=== PATIENT | female | born 1980 | race Caucasian/White ===

== ENCOUNTER 2022-05-16 10:11 | Outpatient (CLI) | payer MEDICARE, MEDICAID, SELFPAY ==
--- NOTE | ~2022-05-16 | XR_ITS ---
XR cervical spine 4-5V DATE: 05/16/2022 10:57 INDICATION: Down syndrome TECHNIQUE: Flexion and extension lateral views, AP, open-mouth, lateral views COMPARISON: None FINDINGS: C1 and C2 are normally aligned and the odontoid process appears intact. No fracture or disl ocation or locked facet or prevertebral soft tissue swelling is detected. No cervical instability on flexion or extension is noted. There is multilevel degenerative disc disease, most prominent at C6-7. IMPRESSION: Multilevel degenerative disc disease, most prominent at C6-7 Reviewed, dictated and finalized at location A.
== END 2022-05-16 10:12 | disposition home or self-care (01) ==
PROVIDERS: PCP Physician Assistant; Visit Provider Physician Assistant
DX: Q90.9 Down syndrome, unspecified (principal); M50.323 Other cervical disc degeneration at C6-C7 level
CPT/HCPCS: 72050

== ENCOUNTER 2022-07-18 10:56 | Emergency (ER) | payer MEDICARE, MEDICAID, SELFPAY ==
[2022-07-18 11:15] VITALS: BP 131/85; PULSE 98; RESP 20; TEMP 36.5; O2SAT 99
--- NOTE | 2022-07-18 11:42 | ED.URI ---
HPI - URI/Sore Throat General Chief Complaint: Upper Respiratory Infection Stated Complaint: chest congestion Time Seen by Provider: 07/18/22 11:20 Source: patient Mode of arrival: ambulatory Limitations: no limitations History of Present Illness HPI Narrative: Hazel is a 41-year-old nonverbal down syndrome female patient presenting to the clinic today with complaints of chest congestion x1 week. Family members report no fever or chills. No known exposure to anyone with COVID, flu, or strep MD elicited complaint: sore throat and nasal congestion Related Data Home Medications Medication Instructions Recorded Confirmed carbamazepine 200 mg tablet 200 mg PO Q12H 02/09/20 07/18/22 ezetimibe 10 mg tablet 10 mg PO DAILY 02/09/20 07/18/22 sertraline 25 mg tablet 25 mg PO DAILY 02/09/20 07/18/22 Allergies Allergy/AdvReac Type Severity Reaction Status Date / Time No Known Allergies Allergy Verified 07/18/22 11:29 Review of Systems Review of Systems: Pertinent positives per HPI. Patient denies any fever, chills, rash, headache, visual changes, dizziness, shortness of breath, chest pain, palpitations, nausea, vomiting, diarrhea, constipation, abdominal pain, or any urinary issues. PMFSH Past Medical History Medical History Anxiety Down syndrome High serum cholesterol sulfate Nonverbal Surgical History Surgical History History of tonsillectomy Family History Family History Father Hypertension Grandparent Family history of coronary artery disease Diabetes mellitus Hypertension Mother Hypertension Social History Social History Smoking status: Never smoker Alcohol intake: never Substance use: never Comments At the time of my signature, I reviewed and agree with the nursing past medical, surgical, social, and family history. There is no relevant family history pertinent to the patient complaint. Exam Narrative: General: Well-developed, well nourished, in no apparent distress Head: Normocephalic, atraumatic Eyes: Pupils equally round and reactive to light bilaterally, EOM intact, sclera and conjunctive clear, no discharge, lids normal Ears: TMs intact and clear, ear canals clear, no drainage, grossly hearing normal. Nose: Nares patent, no discharge, no inflammation, no sinus tenderness. Mouth: Oral pharynx without lesions or masses, good dentition, MMM. Neck: Supple, trachea midline, no enlargement of anterior or posterior cervical nodes, no thyroid masses or goiter palpable. Cardio: Regular rate and rhythm, s1 and s2 normal, no murmur appreciated. Resp: Clear to auscultation bilaterally, no rhonchi, rales, wheezing or rubs Course Course Emergency Course: Portions of this record may have been created with voice recognition software. Level of Care: Express Care Visit Vital Signs Vital signs: Vital Signs Temperature 36.5 C 07/18/22 11:15 Pulse Rate 98 07/18/22 11:15 Respiratory Rate 20 07/18/22 11:15 Blood Pressure 131/85 07/18/22 11:15 Pulse Oximetry 99 07/18/22 11:15 Temperature 36.5 C 07/18/22 11:15 Pulse Rate 98 07/18/22 11:15 Respiratory Rate 20 07/18/22 11:15 Blood Pressure 131/85 07/18/22 11:15 Pulse Oximetry 99 07/18/22 11:15 Vital signs reviewed MDM - URI/Sore Throat MDM Narrative Medical decision making narrative: At the time of visit patient is resting comfortably on the exam table. Lung sounds are clear however she does have a wet cough and runny nose. I suspect patient has URI. Supportive measures were discussed with the patient and the father and they voiced understanding. Prescription for albuterol inhaler was sent as well as prednisone. Differential Diagnosis Differenti
== END 2022-07-18 11:48 | disposition home or self-care (01) ==
PROVIDERS: Emergency Provider Nurse Practitioner Family; PCP Physician Assistant
DX: J06.9 Acute upper respiratory infection, unspecified (principal); R05.9 Cough, unspecified; Q90.9 Down syndrome, unspecified; F41.9 Anxiety disorder, unspecified
CPT/HCPCS: 99213; G0463

== ENCOUNTER 2023-05-02 02:50 | Day surgery (SDC) | payer MEDICARE, MEDICAID, SELFPAY ==
[2023-04-19 16:22] VITALS: BMI 27.6
--- NOTE | 2023-04-19 16:27 | PC.NURSE ---
Report to the Outpatient Waiting Room, entrance under the green pavilion located off [facility], at time _0600_ on date _[id number]_. Planned Procedure Time: 30_. Time changes happen often and if your time is changed the preop area will call you the afternoon before. - You and your visitor will be asked to self-screen and do not enter if you have any COVID symptoms. - A mask is optional within the hospital at this time. Patients may have clear liquids (water, carbonated beverages, clear teas, apple juice) until 3 hours prior to surgery with a maximum of 20 ounces. - No food from midnight until time of surgery Take the following medications with a SIP of water the morning of surgery: __Diazepam, Carbamazepine, Ezetimibe and Sertraline DO NOT STOP ANY OF YOUR OTHER PRESCRIPTION MEDICATIONS PRIOR TO SURGERY ?EXCEPT THE FOLLOWING Medications to discontinue per physician None Date to take last dose Please no make-up, nail khmer, hairspray, perfume, deodorant, or body powder the day of surgery. No jewelry (including any body piercings) or valuables the day of surgery, leave them at home. Please take a shower or bath the night before, or the morning of, surgery with an antibacterial soap. Wear comfortable, loose fitting clothing. - Jewelry must be removed prior to entering the operating room. Rings and piercings that are not removed may be cut off. - The hospital will not accept responsibility for valuables. - Please leave all valuables, including medications, at home the day of surgery. If you are going home after surgery, a licensed armored truck driver must drive you home. - NO public transportation without another adult if you receive anesthesia. - We recommend that an adult stay with you for 24 hours following discharge. - We also recommend that you do not drive, make important decision, drink alcoholic beverages, or take any drugs that were not prescribed by your health care provider for at least 24 hours after your discharge time. Follow any additional instructions given to you from your surgeon. If you or anyone in your household have experienced Covid symptoms in the past week, please notify your surgeon or the nurse liaison at the phone number below for possible testing. Telephone instructions given to __Parents___and asked if any additional questions and then verbalized understanding. Patient advised to call surgeon office or pre surgery nurse liaison [phone] if any additional questions.
[2023-05-02] MEDS: ACETAMINOPHEN 500 MG TABLET 1000 MG PO (07:00)
--- NOTE | 2023-05-02 07:07 | PM.IMHP ---
H&P: HPI History of Present Illness Date/Time: 05/02/23 07:07 Chief Complaint: Exam under anesthesia Narrative: 42 y/o G0 with Downs syndrome admitted for exam under anesthesia and pap smear. She is unable to tolerate exam in office. History is from her mother. Last exam under anesthesia ten years ago. LPS ten years ago. Review of Systems Review of Systems: All systems reviewed & are unremarkable except as noted in HPI and below Cardiovascular: Cardiovascular: Reports no additional cardiovascular complaints Respiratory: Respiratory: Reports no additional respiratory complaints Gastrointestinal: Gastrointestinal: Reports abdominal pain Integumentary/Breasts: Skin/Breast: Reports system reviewed and no additional complaints, except as docu Neurologic: Reports system reviewed and no additional complaints, except as documented PMF Past Medical History Medical History Anxiety Down syndrome High serum cholesterol sulfate Nonverbal Surgical History Surgical History History of tonsillectomy Family History Family History Father Hypertension Grandparent Family history of coronary artery disease Diabetes mellitus Hypertension Mother Hypertension Social History Social History Smoking status: Never smoker Alcohol intake: current Substance use: never Lack of Transportation: No Lack of Food: Never True Current Housing: I Have Housing Concerned About Future Housing: No Difficulty Paying Gas/Electric Bills: No Difficulty Paying for Meds: No Currently Unemployed: No Education: Decline to Answer Difficulty w/ Childcare or Family Care: No Living arrangements: with family Occupation/Education: other Gender identity (if verbalized by the patient): Female Spiritual care concerns: No Meds Home Medications and Allergies Home Medications Medication Instructions Recorded Confirmed Type carbamazepine 200 mg tablet 200 mg PO Q12H 02/09/20 04/25/23 History ezetimibe 10 mg tablet 10 mg PO DAILY 02/09/20 04/25/23 History sertraline 25 mg tablet 25 mg PO DAILY 02/09/20 04/25/23 History Allergies Allergy/AdvReac Type Severity Reaction Status Date / Time No Known Allergies Allergy Verified 04/19/23 16:20 Exam HENMT: Head: normal to inspection Eyes: General: appearance normal, both eyes and all related structures Resp: Effort & Inspection: normal respiratory effort Auscultation: clear to auscultation bilaterally Cardio: Rate: regular rate Rhythm: regular rhythm GI: Inspection: normal to inspection GI Palp: No Rebound tenderness present Neuro: General: oriented to person and oriented to place Cognition (Neuro): normal cognition Extrem: General: normal to inspection Psych: Appearance: grossly normal and well kempt Assessment and Plan Assessment and plan (1) Examination: Code(s): Z00.00 - Encounter for general adult medical examination without abnormal findings Status: Acute Assessment and Plan: Plan for exam with mask anesthesia. Will also obtain preventative labs.
--- NOTE | 2023-05-02 07:10 | WPDHPUPDATE1 ---
History and Physical Update Update Date/Time: 05/02/23 07:10 History and Physical has been reviewed, including an updated exam of the patient. There are NO changes in the patient's condition. Risks, benefits, and alternatives have been discussed and questions answered. Patient agrees to proceed with procedure.
--- NOTE | 2023-05-02 07:25 | WPDHPUPDATE1 ---
History and Physical Update Update Date/Time: 05/02/23 07:25 History and Physical has been reviewed, including an updated exam of the patient. There are NO changes in the patient's condition. Risks, benefits, and alternatives have been discussed and questions answered. Patient agrees to proceed with procedure.
[2023-05-02 07:47] VITALS: BP 99/67; PULSE 75; RESP 14; TEMP 36.6; O2SAT 100
[2023-05-02 07:57] LABS: Basophils Absolute Auto 0.1 K/mm3 (0.0-0.1); Basophils Percent Auto 1.2 % (0.2-1.2); Eosinophils Absolute Auto 0.1 K/mm3 (0-0.3); Hematocrit 45.5 % (37.0-47.0); Hemoglobin 15.5 g/dL (12.0-15.0); Immature Granulocyte Absolute 0.02 K/mm3 (0.00-0.031); Immature Granulocyte Percent A 0.3 % (0-0.5); Lymphocytes Absolute Auto 2.28 K/mm3 (0.9-3.2); Lymphocytes Percent Auto 38.3 % (18.3-44.2); Mean Corpuscular HGB Conc 34.1 g/dl (32-36); Mean Corpuscular Hemoglobin 33.5 pg (26-34); Mean Corpuscular Volume 98.5 fl (80-100); Mean Platelet Volume 8.6 fl (7.4-10.4); Monocytes Absolute Auto 0.5 K/mm3 (0.1-0.6); Monocytes Percent Auto 8.2 % (2.6-8.5); Platelet Count Result 254 k/mm3 (150-375); Red Blood Count 4.62 M/mm3 (4.2-5.4); Red Cell Distribution Width 14.6 % (11.5-14.5)
[2023-05-02 08:02] VITALS: BP 117/72; PULSE 86; RESP 20; O2SAT 100
[2023-05-02 08:04] VITALS: PULSE 53; RESP 16; O2SAT 100
[2023-05-02 08:06] LABS: Alanine Aminotransferase 22 U/L (6-35); Albumin Level 3.8 g/dL (3.5-5.1); Alkaline Phosphatase 86 U/L (38-126); Anion Gap 6 mmol/L (8-16); Aspartate Amino Transferase 26 U/L (14-36); Bilirubin,Total 0.4 mg/dL (0.2-1.3); Blood Urea Nitrogen 16 mg/dL (7-17); Calcium 8.4 mg/dL (8.4-10.2); Carbon Dioxide 24 mmol/L (22-30); Chloride 107 mmol/L (98-107); Estimated Glomerular Filt Rate > 60; Glucose 106 mg/dL (65-110); Sodium 137 mmol/L (137-145)
--- NOTE | 2023-05-02 08:34 | P.OP_ITS ---
Procedure Note - Detailed Date of Procedure 05/02/23 Pre-op Diagnosis Down Syndrome, Non verbal, pap smear Post-op Diagnosis Same Procedure Performed Refueling Ramp Supervisor exam under anesthesia, pap smear, clinical breast exam Surgeon Jose Angel Carroll MD Anesthesia MAC Indications 42 y/o female perimenopausal unable to obtain breast/pelvic exam in office. Findings atrophic vagina, cervix stenotic and sclerosed with vagina, uterus small, no adnexal masses palpated, normal breast exam bilaterally Description of Procedure After informed consent obtained from parents, she walked to OR, was placed on stretcher, adequate anesthesia was obtained, clinical breast exam performed,legs were placed in frog leg position, speculum inserted, pap smear obtained, bimanual exam normal. Ordered labs obtained by OR staff. Patient tolerated procedure well. Estimated Blood Loss 0 Drains No Packing No Pathology Other (pap smear obtained sent to outside pathologist) Complications No immediate complications Condition Stable Disposition PACU [facility] Billing Surgery - Charge Forward: Surgery Billing
--- NOTE | 2023-05-02 08:55 | WPDANESEPPF ---
Anes - Initial Pre Proc Eval Procedure: Operation Date: 05/02/23 07:30 Proposed Procedures p Pelvic Exam Under Anesthesia, Pap Smear, Bilateral Breast Exam - Jose Angel Carroll MD Date/Time: 05/02/23 08:55 Surgeon: Jose Angel Craroll MD Pre Op Diagnosis: Down Syndrome, Non verbal Patient Data Age: 42 Gender: F Height: 1.42 m Weight: 55.5 kg Last Vital Signs Temp 36.6 C 05/02/23 07:47 Pulse 53 L 05/02/23 08:04 Resp 16 05/02/23 08:04 BP 117/72 05/02/23 08:02 Pulse Ox 100 05/02/23 08:04 O2 Del Method Room Air 05/02/23 08:04 O2 Flow Rate 10 05/02/23 07:47 Allergies Allergy/AdvReac Type Severity Reaction Status Date / Time No Known Allergies Allergy Verified 05/02/23 08:38 Home Medications Medication Instructions Recorded Confirmed Type carbamazepine 200 mg tablet 200 mg PO Q12H 02/09/20 05/02/23 History ezetimibe 10 mg tablet 10 mg PO DAILY 02/09/20 05/02/23 History sertraline 25 mg tablet 25 mg PO DAILY 02/09/20 05/02/23 History Laboratory Tests 05/02/23 07:18 WBC 6.0 K/mm3 (4.5-10.0) RBC 4.62 M/mm3 (4.2-5.4) Hgb 15.5 H g/dL (12.0-15.0) Hct 45.5 % (37.0-47.0) MCV 98.5 fl (80-100) MCH 33.5 pg (26-34) MCHC 34.1 g/dl (32-36) RDW 14.6 H % (11.5-14.5) Plt Count 254 k/mm3 (150-375) MPV 8.6 fl (7.4-10.4) Immature Gran % (Auto) 0.3 % (0-0.5) Neut % (Auto) 50.0 % (45.5-73.1) Lymph % (Auto) 38.3 % (18.3-44.2) [place] % (Auto) 8.2 % (2.6-8.5) Eos % (Auto) 2.0 % (0-4.4) Baso % (Auto) 1.2 % (0.2-1.2) Lymph # (Auto) 2.28 K/mm3 (0.9-3.2) [place] # (Auto) 0.5 K/mm3 (0.1-0.6) Eos # (Auto) 0.1 K/mm3 (0-0.3) Baso # (Auto) 0.1 K/mm3 (0.0-0.1) Abs Immat Gran (auto) 0.02 K/mm3 (0.00-0.031) Absolute Neuts (auto) 3.0 K/mm3 (1.3-6.7) Absolute Nucleated RBC 0.0 K/mm3 (0.0-0.012) Nucleated RBC % 0.0 % (0.0-0.2) Sodium 137 mmol/L (137-145) Potassium 4.0 mmol/L (3.4-5.0) Chloride 107 mmol/L (98-107) Carbon Dioxide 24 mmol/L (22-30) Anion Gap 6 L mmol/L (8-16) BUN 16 mg/dL (7-17) Creatinine 0.70 mg/dL (0.7-1.0) Estim Creat Clear Calc Not Reportable Estimated GFR > 60 (59 - ) Glucose 106 mg/dL (65-110) Calcium 8.4 mg/dL (8.4-10.2) Total Bilirubin 0.4 mg/dL (0.2-1.3) Direct Bilirubin 0.0 mg/dL (0-0.3) AST 26 U/L (14-36) ALT 22 U/L (6-35) Alkaline Phosphatase 86 U/L (38-126) Total Protein 7.0 g/dL (6.3-8.2) Albumin 3.8 g/dL (3.5-5.1) FSH Pending Prolactin Pending Patient hx anesthesia problems: none Family hx anesthesia problems: none Results Review: All pre-operative results and documents have been reviewed as part of the pre-operative evaluation. [facility] Past Medical History Medical History Anxiety Down syndrome High serum cholesterol sulfate Nonverbal Surgical History Surgical History History of tonsillectomy Family History Family History Father Hypertension Grandparent Family history of coronary artery disease Diabetes mellitus Hypertension Mother Hypertension Social History Social History Smoking status: Never smoker Alcohol intake: current Substance use: never Lack of Transportation: No Lack of Food: Never True Current Housing: I Have Housing Concerned About Future Housing: No Difficulty Paying Gas/Electric Bills: No Difficulty Paying for Meds: No Currently Unemployed: No Education: Decline to Answer Difficulty w/ Childcare or Family Care: No Living arrangements: with family Occupation/Education: other Gender identity (if verbalized by the patient): Fem
[2023-05-06 05:15] LABS: Prolactin 48.2 ng/mL (***)
[2023-05-09 07:05] LABS: FSH 36.4 mIU/mL (***)
== END 2023-05-02 08:23 | disposition home or self-care (01) ==
PROVIDERS: PCP Physician Assistant; Visit Provider Obstetrics & Gynecology
PROC: 0U5B8ZZ Destruction of Endometrium, Via Natural or Artificial Opening Endoscopic (ICD-10-PCS; CPT 58563; principal; 2023-05-02 07:30)
DX: Z01.419 Encounter for gynecological examination (general) (routine) without abnormal findings (principal); Q90.9 Down syndrome, unspecified
CPT/HCPCS: Q0091; G0101; 36415; 80048; 80076; 83001; 84146; 85025; A9270; J3010

== ENCOUNTER 2023-12-19 08:11 | Outpatient (NON) | payer MEDICARE, MEDICAID, SELFPAY ==
[2023-12-19 08:56] LABS: Basophils Absolute Auto 0.1 K/mm3 (0.0-0.1); Eosinophils Absolute Auto 0.1 K/mm3 (0-0.3); Eosinophils Percent Auto 1.1 % (0-4.4); Immature Granulocyte Absolute 0.02 K/mm3 (0.00-0.031); Immature Granulocyte Percent A 0.3 % (0-0.5); Lymphocytes Absolute Auto 2.34 K/mm3 (0.9-3.2); Lymphocytes Percent Auto 37.8 % (18.3-44.2); Mean Corpuscular HGB Conc 33.3 g/dl (32-36); Mean Corpuscular Hemoglobin 32.7 pg (26-34); Mean Platelet Volume 8.7 fl (7.4-10.4); Monocytes Absolute Auto 0.5 K/mm3 (0.1-0.6); Monocytes Percent Auto 8.1 % (2.6-8.5); Neutrophils Absolute Auto 3.2 K/mm3 (1.3-6.7); Neutrophils Percent Auto 51.7 % (45.5-73.1); Platelet Count Result 273 k/mm3 (150-375); Red Cell Distribution Width 14.8 % (11.5-14.5); White Blood Count 6.2 K/mm3 (4.5-10.0)
[2023-12-19 08:59] LABS: Alanine Aminotransferase 20 U/L (6-35); Albumin Level 4.2 g/dL (3.5-5.1); Alkaline Phosphatase 98 U/L (38-126); Anion Gap 6 mmol/L (4-12); Aspartate Amino Transferase 25 U/L (14-36); Bilirubin,Total 0.5 mg/dL (0.2-1.3); Blood Urea Nitrogen 17 mg/dL (7-17); Calcium 8.9 mg/dL (8.4-10.2); Carbon Dioxide 27 mmol/L (22-30); Chloride 109 mmol/L (98-107); Cholesterol 279 mg/dL (0-200); Estimated Glomerular Filt Rate > 60; Glucose 101 mg/dL (65-110); HDL Direct 78 mg/dL; Potassium 3.8 mmol/L (3.4-5.0); Sodium 142 mmol/L (137-145); Triglycerides 89 mg/dL (<150)
[2023-12-19 09:09] LABS: LDL Cholesterol Direct 149 mg/dL
[2023-12-19 09:21] LABS: Hemoglobin A1C 5.2 % (<5.7)
[2023-12-19 09:37] LABS: Free T4 Free Thyroxine 1.01 ng/mL (0.78-2.19)
[2023-12-21 02:08] LABS: Progesterone <0.5 ng/mL
[2023-12-21 03:23] LABS: FSH 81.3 mIU/mL; LH 50.6 mIU/mL; Prolactin 11.2 ng/mL
[2023-12-26 00:33] LABS: Estradiol, Ultrasensitive 25 pg/mL
== END 2023-12-19 08:12 | disposition home or self-care (01) ==
PROVIDERS: PCP Physician Assistant; Visit Provider Physician Assistant
DX: E78.5 Hyperlipidemia, unspecified (principal); N92.6 Irregular menstruation, unspecified; R73.09 Other abnormal glucose; Z79.899 Other long term (current) drug therapy
CPT/HCPCS: 36415; 80048; 80061; 80076; 82670; 83001; 83002; 83036; 84144; 84146; 84439; 84443; 85025

== ENCOUNTER 2025-04-01 09:09 | Outpatient (CLI) | payer MEDICARE, MEDICAID, SELFPAY ==
--- OUTSIDE RECORDS SUMMARY | 2025-04-01 09:50 | XMS_ITS | Patient Health Record ---
Author Organization [facility] Address [address] [place], [place] [id number] Care Team Providers Care Service Desk Agent Name Role Phone ISADORA Heart Unavailable [phone] Constantin Westfall Unavailable Unavailable Reason For Referral No Information Medications Medication SIG (Take, Route, Frequency, Duration) Notes Start Date End Date Status sertraline 50 MG Oral Tablet ORAL sertraline 50 MG Oral TabletOriginal Medicationsertraline 50 MG Oral Tablet *Reorder from [employer] for eRx and Interaction Alerts* 3 Active carbamazepine 20 MG/ML Oral Suspension ORAL carbamazepine 20 MG/ML Oral SuspensionOriginal Medicationcarbamazepine 20 MG/ML Oral Suspension *Reorder from [employer] for eRx and Interaction Alerts* 3 Active Plan Of Treatment No Information Insurance Providers Payer Name Payer Address Payer Phone Subscriber Number Group Number Insured Name Patient Relationship to Insured Coverage Start Date Coverage End Date Medicare Part B [facility] [address] [facility] [place] [phone] [id number] AUDRA CORREIA Self - patient is the insured
--- OUTSIDE RECORDS SUMMARY | 2025-04-01 09:50 | XMS_ITS | Encounter Summary ---
Author Organization [facility] Care Team Providers Care Title Insurance Agent Name Role Phone Gini Zamora Primary Care Pr ovider Encounter Details Date Type Department Care Team (Latest Contact Info) Description 04/30/2017 Orders Only [facility] CLINCONV ProviderNathaly MD [address] [place] [id number] Social History Tobacco Use Types Packs/Day Years Used Date Smoking Tobacco: Never Comments Unknown Sex and Gender Information Value Date Recorded Sex Assigned at Not on file Legal Sex Female 10:34 AM [employer] Gender Identity Not on file Sexual Orientation Not on file documented as of this encounter Plan of Treatment Not on file documented as of this encounter Procedures Procedure Name Priority Date/Time Associated Diagnosis Comments SCAN - LABS 04/30/2017 12:00 AM CDT SCAN - LABS 04/30/2017 12:00 AM CDT documented in this encounter Results * SCAN - LABS (04/30/2017 12:00 AM CDT) Narrative 04/30/2017 12:00 AM CDT Ordered by an unspecified provider. Historical Provider Final Res ult * SCAN - LABS (04/30/2017 12:00 AM CDT) Narrative 04/30/2017 12:00 AM CDT Ordered by an unspecified provider. us Historical Provider MD Final Res ult documented in this encounter Visit Diagnoses Not on filedocumented in this encounter Care Teams Title Insurance Agent Relationship Specialty Start Date End Date Gini Zamora PA PCP - General Physician Drywall Application Supervisor 02/14/21 documented as of this encounter
--- OUTSIDE RECORDS SUMMARY | 2025-04-01 09:50 | XMS_ITS | Patient Health Record ---
Author Organization [facility] As PostedIn [facility] Address [address] [place] [address] Care Team Providers Care Chicken Cleaner Name Role Phone Gini Bergeron Primary Care Provider Isis Brewer Unavailable [phone] Earnestine Blanton Unavailable [phone] Allergies No Known Allergies Reason For Referral No Information Medications Medication SIG (Take, Route, Frequency, Duration) Notes Start Date End Date Status Ezetimibe 10 MG Tablet Oral 09/21/2023 Active Clindamycin Phosphate 1% Lotion External 09/21/2023 Not-Taking carBAMazepine 200 MG Tablet 0.5 tablet Oral daily; Duration: 90 days Active Social History Tobacco Use: Social History Observation Description Date Details (start date - stop date) Never Smoker NA - NA Sex Assigned At : Social History Observation Description Sex Assigned At Female Social History Household: Social Info Question Answer Notes Household Marital status: single Number of adults in household: 3 Drug/Alcohol: Social Info Question Answer Notes Drugs Have you used drugs other than those for medical reasons in the past 12 months? No Tobacco Use: Social Info Question Answer Notes Tobacco Control (Standard) Tobacco use: Nonsmoker Additional Details Category Social Info Options Details Miscellaneous: Occupation: disability Migrated Social History Migrated Social History Alcohol Intake: None 05/30/2021,Tobacco Years: Never smoker 05/30/2021 Drug/Alcohol: Do you drink alcohol? 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) Down's syndrome (Q90.9) Active confirmed Vital Signs Heart Rate 65 /min 10/08/2024 Height-cm 137.16 cm 10/08/2024 Blood pressure diastolic 80 mm Hg 10/08/2024 Weight-kg 58.97 kg 10/08/2024 Height 54.00 in 10/08/2024 Blood pressure systolic 130 mm Hg 10/08/2024 Weight 130 lbs 10/08/2024 BMI 31.34 kg/m2 10/08/2024 Encounters Encounter Location Date Provider Diagnosis [facility] [employer] [facility] [address] [place] [address] 04/11/2024 Earnestine Franny Generalized anxiety disorder F41.1 ; Intermittent explosive disorder F63.81 and Down's syndrome Q90.9 [facility] [employer] [facility] [address] [place] [address] 10/08/2024 Isis Lu Generalized anxiety disorder F41.1 ; Intermittent explosive disorder F63.81 ; Down's syndrome Q90.9 ; Encounter for screening for cardiovascular disorders Z13.6 and Encounter for screening for depression Z13.31 Assessments Encounter Date Diagnosis (ICD Code) Assessment Notes Treatment Notes Treatment Clinical Notes Section Notes 04/11/2024 Generalized anxiety disorder (ICD-10 - F41.1) stop sertraline 12.5mg daily and monitor for worsening symptoms they did not stop sertraline, but are still interested in minimizing meds. stop SSRI-very low dose, can restart if not tolerated. education on meds and treatment course. They will be going to [facility] for several months f/u in 6 months, earlier if concerns 04/11/2024 Intermittent explosive disorder (ICD-10 - F63.81) cont carbamazepine 200mg tab, take 1/2 tablet daily 10/08/2024 Generalized anxiety disorder (ICD-10 - F41.1) Mood disorder, stable Assessment: Patient was previously on sertraline, which was discontinued due to lack of efficacy at minimal dosage. Currently, the patient reports doing well with no behavioral concerns. She maintains an active lifestyle, including frequent travel. Sleep patterns are normal with no daytime drowsiness reported. Plan: - Continue carbamazepine 200 mg, 1/2 tablets once daily - Follow-up appointment in 6 months - Patient instructed to return sooner if any issues arise 10/08/2024 Intermittent explosive disorder (ICD-10 - F63.81) cont carbamazepine 200mg tab, take 1/2 tablet daily Mood disorder, stable Assessment: Patient was previously on sertraline, which was discontinued due to lack of efficacy at minimal dosage. Currently, the patient reports doing well with no behavioral concerns. She maintains an active lifestyle, including frequent travel. Sleep patterns are normal with no daytime drowsiness reported. Plan: - Continue carbamazepine 200 mg, 1/2 tablets once daily - Follow-up appointment in 6 months - Patient instructed to return sooner if any issues arise 04/11/2024 Down's syndrome (ICD-10 - Q90.9) supportive care 10/08/2024 Down's syndrome (ICD-10 - Q90.9) supportive care Mood disorder, stable Assessment: Patient was previously on sertraline, which was discontinued due to lack of efficacy at minimal dosage. Currently, the patient reports doing well with no behavioral concerns. She maintains an active lifestyle, including frequent travel. Sleep patterns are normal with no daytime drowsiness reported. Plan: - Continue carbamazepine 200 mg, 1/2 tablets once daily - Follow-up appointment in 6 months - Patient instructed to return sooner if any issues arise 10/08/2024 Encounter for screening for cardiovascular disorders (ICD-10 - Z13.6) Mood disorder, stable Assessment: Patient was previously on sertraline, which was discontinued due to lack of efficacy at minimal dosage. Currently, the patient reports doing well with no behavioral concerns. She maintains an active lifestyle, including frequent travel. Sleep patterns are normal with no daytime drowsiness reported. Plan: - Continue carbamazepine 200 mg, 1/2 tablets once daily - Follow-up appointment in 6 months - Patient instructed to return sooner if any issues arise 10/08/2024 Encounter for screening for depression (ICD-10 - Z13.31) Mood disorder, stable Assessment: Patient was previously on sertraline, which was discontinued due to lack of efficacy at minimal dosage. Currently, the patient reports doing well with no behavioral concerns. She maintains an active lifestyle, including frequent travel. Sleep patterns are normal with no daytime drowsiness reported. Plan: - Continue carbamazepine 200 mg, 1/2 tablets once daily - Follow-up appointment in 6 months - Patient instructed to return sooner if any issues arise Plan Of Treatment Next Appt Details Provider Name:Isis Davis anamaria, 04/08/2025 08:30:00 AM, [address], [address], [place], [address], Insurance Providers Payer Name Payer Address Payer Phone Subscriber Number Group Number Insured Name Patient Relationship to Insured Coverage Start Date Coverage End Date Medicare-I l Medicare [address] [place] [address] [id number] AUDRA CORREIA Self - patient is the insured Medicaid-[place] l Medicaid [address] [address] [place] [address] [id number] AUDRA CORREIA Self - patient is the insured Medical (General) History Medical History History ICD Code Problems: Complete trisomy 21 syndrome Generalized anxiety disorder Hypercholesterolemia Intermittent explosive outburst , Surgical History Surgery Date(Month/Year) Tonsillectomy ([id number])
--- OUTSIDE RECORDS SUMMARY | 2025-04-01 09:50 | XMS_ITS | Clinical Summary ---
Author Organization [facility] [address] Address [address] [place] [address] Care Team Providers Care Canvas Shrinker Name Role Phone Sera Gini KAPLAN Primary Care Pr ovider Allergies No known active allergies Medications carBAMazepine (TEGretol) 200 mg tablet Active ezetimibe (ZETIA) 10 mg tablet ezetimibe 10 mg tablet TAKE 1 TABLET BY MOUTH EVERY DAY Active sertraline (ZOLOFT) 50 mg tablet sertraline 50 mg tablet Active Active Problems Problem Noted Date Diagnosed Date Fracture, ankle 11/06/2013 Surgical History Surgery Date Site/Laterality Comments LEG SURGERY 07/23/2013 - 07/22/2014 Medical History Medical History Date Comments Epilepsy (HCC) HL (hearing loss) Family History Medical History Relation Name Comments No Known Problems Father No Known Problems Mother Relation Name Status Comments Father Mother Social History Tobacco Use Types Packs/Day Years Used Date Smoking Tobacco: Never Smokeless Tobacco: Never Personal Safety Answer Date Recorded Getting School Help Needed Not on file 10/05 Comments Unknown Sex and Gender Information Value Date Recorded Sex Assigned at Not on file Legal Sex Female 10:34 AM HAZ TECH Gender Identity Not on file Sexual Orientation Not on file Obstetrics History Last Filed Vital Signs Vital Sign Reading Time Taken Comments Blood Pressure 120/74 04/16/2017 9:15 AM CDT Pulse 83 10/15/2013 8:24 AM CDT Temperature - - Respiratory Rate 17 04/26/2021 9:03 AM CDT Oxygen Saturation 99% 10/15/2013 8:24 AM CDT Inhaled Oxygen Concentration - - Weight 49 kg (108 lb) 04/26/2021 9:03 AM CDT Height 154.9 cm (5' 1) 04/26/2021 9:03 AM CDT Body Mass Index 20.41 04/26/2021 9:03 AM CDT Plan of Treatment Not on file Insurance MEDICARE [facility] MEDICARE ID[employer] Care Teams Canvas Shrinker Relationship Specialty Start Date End Date Gini Zamora PA PCP - General Physician Artisan Plasterer 02/14/21
[2025-04-01 09:53] LABS: Hematocrit 47.7 % (37.0-47.0); Hemoglobin 15.5 g/dL (12.0-15.0); Immature Granulocyte Percent A 0.2 % (0-0.5); Lymphocytes Absolute Auto 2.38 K/mm3 (0.9-3.2); Mean Corpuscular HGB Conc 32.5 g/dl (32-36); Mean Corpuscular Hemoglobin 32.5 pg (26-34); Mean Corpuscular Volume 100.0 fl (80-100); Nucleated Red Blood Cells Absolute Auto 0.000 K/mm3 (0.0-0.012); Nucleated Red Blood Cells Perc 0.0 % (0.0-0.2); Platelet Count Result 266 k/mm3 (150-375); Red Blood Count 4.77 M/mm3 (4.2-5.4); White Blood Count 6.0 K/mm3 (4.5-10.0)
[2025-04-01 10:04] LABS: Hemoglobin A1C 5.3 % (<5.7)
[2025-04-01 10:13] LABS: Alanine Aminotransferase 25 U/L (6-35); Albumin Level 4.2 g/dL (3.5-5.1); Alkaline Phosphatase 99 U/L (38-126); Anion Gap 8 mmol/L (4-12); Aspartate Amino Transferase 31 U/L (14-36); Bilirubin,Total 0.4 mg/dL (0.2-1.3); Blood Urea Nitrogen 17 mg/dL (7-17); Calcium 8.9 mg/dL (8.4-10.2); Carbon Dioxide 26 mmol/L (22-30); Chloride 104 mmol/L (98-107); Cholesterol 262 mg/dL (0-200); Estimated Glomerular Filt Rate > 60; Glucose 100 mg/dL (65-110); HDL Direct 80 mg/dL; Potassium 5.6 mmol/L (3.4-5.0); Sodium 138 mmol/L (137-145); Total Protein 7.6 g/dL (6.3-8.2); Triglycerides 88 mg/dL (<150)
[2025-04-01 10:35] LABS: Free T4 Free Thyroxine 0.97 ng/dL (0.78-2.19)
[2025-04-01 10:49] LABS: Thyroid Stimulating Hormone 2.650 uIU/mL (0.465-4.680)
[2025-04-02 07:09] LABS: Carbamazepine (Tegretol) 3.1 ug/mL (4.0-12.0); FSH 57.6 mIU/mL (.); LH 38.6 mIU/mL (.)
== END 2025-04-01 09:10 | disposition home or self-care (01) ==
LOC: ANHLAB 09:13
PROVIDERS: PCP Physician Assistant; Visit Provider Physician Assistant
DX: E78.5 Hyperlipidemia, unspecified (principal); I10 Essential (primary) hypertension; Z79.899 Other long term (current) drug therapy; N92.6 Irregular menstruation, unspecified; R73.09 Other abnormal glucose
CPT/HCPCS: 36415; 80048; 80061; 80076; 80156; 83001; 83002; 83036; 84144; 84146; 84439; 84443; 85025